=== PATIENT | female | born 1970 | race Caucasian/White ===

== ENCOUNTER 2017-12-24 13:21 | Emergency (ER) | payer MEDICAID ==
[2017-12-24] MEDS ORDERED: CLINDAMYCIN 600 MG/D5W RTU 600 MG/50 ML RTUPB IV ONE (15:34)
[2017-12-24 16:09] LABS: ABSOLUTE BASOPHILS # (AUTO) 0.1 10^3/uL (0.0-0.2); ABSOLUTE EOSINOPHILS # (AUTO) 0.2 10^3/uL (0.0-0.6); ABSOLUTE MONOCYTES (AUTO) 1.1 10^3/uL (0.1-1.4); ABSOLUTE NEUT (AUTO) 6.5 10^3/uL (1.7-8.2); BASOPHILS % (AUTO) 0.5 % (0-2); EOSINOPHILS % (AUTO) 1.8 % (0-6); HEMATOCRIT 45.1 % (36.0-47.0); HEMOGLOBIN 15.4 g/dL (12.0-15.5); LYMPHOCYTES % (AUTO) 20.8 % (13-45); MEAN CORPUSCULAR HEMOGLOBIN 31.2 pg (27.0-33.4); MEAN CORPUSCULAR HGB CONC 34.1 g/dL (32.0-36.0); MEAN CORPUSCULAR VOLUME 91 fl (80-97); MONOCYTES % (AUTO) 11.2 % (3-13); PLATELET COUNT 142 10^3/uL (150-450); RED BLOOD COUNT 4.93 10^6/uL (3.72-5.28); RED CELL DISTRIBUTION WIDTH 13.7 % (11.5-14.0); SEGMENTED NEUTROPHILS % (AUTO) 65.7 % (42-78); TOTAL CELLS COUNTED % (AUTO) 100 %; WHITE BLOOD COUNT 9.9 10^3/uL (4.0-10.5)
[2017-12-24 16:31] LABS: ANION GAP 10 (5-19); BLOOD UREA NITROGEN 5 mg/dL (7-20); CALCIUM 9.1 mg/dL (8.4-10.2); CARBON DIOXIDE 28 mmol/L (22-30); CHLORIDE 103 mmol/L (98-107); GLUCOSE 85 mg/dL (75-110); POTASSIUM 4.2 mmol/L (3.6-5.0); SODIUM 140.9 mmol/L (137-145)
--- NOTE | 2017-12-24 16:34 | RADIOLOGY REPORT (SQ) ---
EXAM DESCRIPTION: CT FACIAL AREA WITH COMPLETED DATE/TIME: 12/24/2017 4:22 pm REASON FOR STUDY: right jaw swelling eval abscess COMPARISON: None. TECHNIQUE: Post contrast images through the facial bones and orbits windowed for bone and soft tissu e. Additional coronal and sagittal reconstructed images reviewed. All images stored on PACS. All CT scanners at this facility use dose modulation, iterative reconstruction, and/or weight based d osing when appropriate to reduce radiation dose to as low as reasonably achievable (ALARA). [facility]: Dose Right [facility]: CareDose [facility]: Dose Right [facility]: Teradose 4D [facility]: FatSkunk CONTRAST TYPE AND DOSE: contrast/concentration: Isovue 350.00 mg/ml; Total Contrast Delivered: 50.0 ml; Total Saline Delivered: 50.0 ml RENAL FUNCTION: Not available. RADIATION DOSE: CT Rad equipment meets quality standard of care and radiation dose reduction techniq ues were employed. CTDIvol: 30.4 mGy. DLP: 578 mGy-cm. . LIMITATIONS: None. FINDINGS: FACIAL BONES: No fracture or bone lesion. ORBITS: Intact. No fracture. Symmetric intact globes and retroorbital soft tissues. PARANASAL SINUSES: Clear. SOFT TISSUES: Stranding of the subcutaneous fat over the right cheek and mandible. No abscess. INFERIOR BRAIN: Limited view. No acute findings. OTHER: No other significant finding. IMPRESSION: Cellulitis. No abscess identified. TECHNICAL DOCUMENTATION: JOB ID: [id number] Quality ID # [id number]: Final reports with documentation of one or more dose reduction techniques (e.g., Au tomated exposure control, adjustment of the mA and/or kV according to patient size, use of iterative reconstruction technique) 2010 [employer]- All Rights Reserved Reading location - IP/workstation name: [email or web address]
[2017-12-24] MEDS ORDERED: CLINDAMYCIN HCL 150 MG CAPSULE PO ONE (17:05)
--- NOTE | 2017-12-24 17:05 | ER Document Report ---
ED General - General Stated Complaint: MOUTH ABSCESS Time Seen by Provider: 12/24/17 15:14 TRAVEL OUTSIDE OF THE [place] IN LAST 30 DAYS: No - HPI Patient complains to provider of: Right facial swelling dental pain Notes: Patient coming in with right dental pain and facial swelling. States no fevers chills nausea vomiting diarrhea states no shortness of breath no difficulty swallowing. Patient states day prior to arrival went to the local pharmacy and obtained putty the place in her teeth that she had a hole patient states since that time increased pain and swelling to the right side of her face. - Related Data Allergies/Adverse Reactions: No Known Allergies Allergy (Unverified 12/24/17 13:24) Past Medical History - Social History Smoking Status: Current Every Day Smoker Chew tobacco use (# tins/day): No Frequency of alcohol use: None Drug Abuse: None Family History: Reviewed & Not Pertinent Patient has suicidal ideation: No Patient has homicidal ideation: No Renal/ Medical History: Denies: Hx Peritoneal Dialysis Review of Systems - Review of Systems Constitutional: No symptoms reported EENT: Other - Dental pain with facial swelling Cardiovascular: No symptoms reported Respiratory: No symptoms reported Gastrointestinal: No symptoms reported Genitourinary: No symptoms reported Female Genitourinary: No symptoms reported Musculoskeletal: No symptoms reported Skin: No symptoms reported Hematologic/Lymphatic: No symptoms reported Neurological/Psychological: No symptoms reported Physical Exam - Vital signs Vitals: Temp Pulse Resp BP Pulse Ox 98.9 F 79 16 120/76 100 12/24/17 13:49 12/24/17 13:49 12/24/17 13:49 12/24/17 13:49 12/24/17 13:49 Interpretation: Normal - General General appearance: Appears well, Alert - HEENT Head: Normocephalic, Atraumatic Eyes: Normal Conjunctiva: Normal Cornea: Normal Pupils: PERRL Nasal: Normal Mouth/Lips: Caries, Other - Patient with diffuse dental disease with a gingival cellulitis no obvious abscess formation at tooth number 30 with a white material is inserted into the tooth of the try to remove this white packing material however was not able to perform this. There is slight swelling underneath the angle of the mandible on the right side no fluctuance felt no skin changes. There is no signs of liquids noted elevation of tongue is no protrusion of the submandibular glands no signs of airway compromise patient is not drooling able to tolerate her secretions Neck: Normal - Respiratory Respiratory status: No respiratory distress Chest status: Nontender Breath sounds: Normal Chest palpation: Normal - Cardiovascular Rhythm: Regular Heart sounds: Normal auscultation Murmur: No - Abdominal Inspection: Normal Distension: No distension Bowel sounds: Normal Tenderness: Nontender Organomegaly: No organomegaly - Back Back: Normal, Nontender - Extremities General upper extremity: Normal inspection, Nontender, Normal color, Normal ROM , Normal temperature General lower extremity: Normal inspection, Nontender, Normal color, Normal ROM , Normal temperature, Normal weight bearing. No: Radha's sign - Neurological Neuro grossly intact: Yes Cognition: Normal Orientation: AAOx4 Be Coma Scale Eye Opening: Spontaneous [place] Coma Scale Verbal: Oriented [place] Coma Scale Motor: Obeys Commands Be Coma Scale Total: 15 Speech: Normal Motor strength normal: LUE, RUE, LLE, RLE Sensory: Normal - Psychological Associated symptoms: Normal affect, Normal mood - Skin Skin Temperature: Warm Skin Moisture: Dry Skin Color: negative: Normal - Diffuse eczema no signs of cellulitis Course - Re-evaluation Re-evalutation: 12/24/17 22:33 CT scans or signs of cellulitis consistent with a gingival cellulitis seen on examination. Patient was encouraged follow-up with dentist started on 6 clindamycin. Return to ER symptoms worsen. Patient states understanding and was discharged home. 12/24/17 22:34 Prescription for the patient's eczema cream was also provided - Vital Signs Vital signs: Temp Pulse Resp BP Pulse Ox 98.7 F 82 16 113/78 99 12/24/17 17:16 12/24/17 17:16 12/24/17 17:16 12/24/17 17:16 12/24/17 17:16 - Laboratory Result Diagrams: 12/24/17 16:00 12/24/17 16:00 Laboratory results interpreted by me: 12/24/17 12/24/17 16:00 16:00 Plt Count 142 L BUN 5 L Creatinine 0.42 L Discharge - Discharge Clinical Impression: Dental infection Condition: Good Disposition: HOME, SELF-CARE Instructions: Clindamycin ([facility]), Dentist, Dental Infection or Abscess ([facility]) Additional Instructions: Your CAT scan today does not show any signs of abscess formation but does show significant signs of inflammation around your 2. Please make sure that you take the antibiotics as prescribed. I would recommend taking Tylenol Motrin for your pain control. 600 mg of Motrin along with 650 mg of Tylenol 3 times a day for pain control. He may take the Ultram as prescribed for severe pain. Please be aware the Ultram is a narcotic pain medication. Return to ER symptoms worsen. Recommend following up with your dentist or 1 of the clinics provided as soon as possible. Prescriptions: Ibuprofen [Motrin 600 mg Tablet] 600 mg PO Q8HP PRN #21 tablet PRN Reason: Clindamycin HCl 300 mg PO Q6 10 Days capsule Tramadol HCl [Ultram 50 mg Tablet] 50 mg PO ASDIR PRN #20 tablet PRN Reason: Triamcinolone Acetonide [Aristocort 0.1% Ointment] 1 applic TP BID PRN #60 gm PRN Reason: Forms: Return to Work
[2017-12-24 17:19] VITALS: BP 113/78
== END 2017-12-24 17:28 | disposition home or self-care (01) ==
LOC: ER 13:21
DX: K04.7 Periapical abscess without sinus (principal); R22.0 Localized swelling, mass and lump, head; K08.89 Other specified disorders of teeth and supporting structures; F17.200 Nicotine dependence, unspecified, uncomplicated
CPT/HCPCS: 36415; 70487; 80048; 84702; 85025; 96365; 99284